=== PATIENT | female | born 1995 | race Caucasian/White ===

== ENCOUNTER 2016-10-29 07:32 | Day surgery (SDC) | payer OTHER ==
[2016-10-26 14:59] LABS: ALKALINE PHOSPHATASE 89 U/L (32-104); DIRECT BILIRUBIN < 0.20 mg/dL (0.00-0.20); GOT 15 U/L (10-30); GPT 21 U/L (10-36); TOTAL BILIRUBIN 0.26 mg/dL (0.20-1.00); TOTAL PROTEIN 7.2 g/dL (6.3-8.3)
[2016-10-29] MEDS ORDERED: LR 1,000 ML ONE ×3 (07:49→16:31)
[2016-10-29] MEDS ORDERED: REGLAN ONE (07:49)
[2016-10-29] MEDS ORDERED: PEPCID ONE (07:49)
[2016-10-29] MEDS ORDERED: KEFZOL 1 GM/D5W 50 ML ONE (07:49)
[2016-10-29] MEDS ORDERED: TRANSDERM-SCOP ONE (07:49)
[2016-10-29] MEDS ORDERED: VALIUM ONE (07:50)
[2016-10-29] MEDS ORDERED: SODIUM CHLORIDE 0.9% ONE ×2 (08:30→09:11)
[2016-10-29] MEDS ORDERED: MARCAINE 0.25% PF/EPI 1:200,000 ONE (08:30)
[2016-10-29] MEDS ORDERED: DEMEROL ONE (10:11)
--- NOTE | 2016-10-29 10:15 | Diag Imaging Result Document ---
PROCEDURE NAME: OPERATIVE CHOLANGIOGRAM - 10/29/2016 INTRAOPERATIVE CHOLANGIOGRAM, SINGLE VIEW: FINDINGS: Film taken during a procedure performed by Dr. Escobedo. Dose is 3.93 mGy. Fluoroscopy time was 8 seconds. Contrast fills the common bile duct and has emptied into the duodenum. No stone or stricture. IMPRESSION: Normal intraoperative cholangiogram.
[2016-10-29] MEDS: DILAUDID ONE ×2 (10:23→10:43)
[2016-10-29] MEDS ORDERED: BUPRENEX IV PRN (11:09)
[2016-10-29] MEDS ORDERED: NORCO-10 PO PRN (11:09)
[2016-10-29] MEDS ORDERED: ZOFRAN IV PRN (11:09)
--- NOTE | 2016-10-29 13:26 | OPERATIVE NOTE ---
PROCEDURE DATE: 10/29/2016 PREOPERATIVE DIAGNOSIS: Chronic calculous cholecystitis. POSTOPERATIVE DIAGNOSIS: Chronic calculous cholecystitis. PROCEDURE PERFORMED: Laparoscopic cholecystectomy with operative cholangiogram. SURGEON: Rosalino Escobedo MD ANESTHESIA: General. ESTIMATED BLOOD LOSS: 10 mL. COMPLICATIONS: None apparent. SPECIMENS: Gallbladder. FINDINGS: The gallbladder was moderately distended. The cholangiogram revealed normal proximal hepatic radicals and distal common bile duct. There were no filling defects or stenoses. There was flow of contrast seen flowing into the duodenum. TECHNIQUE: She was brought to the operating room and placed supine on the table. General anesthesia was induced. She was prepped and draped and draped in usual sterile fashion. Marcaine 0.25% with epinephrine was used to anesthetize the skin incisions. An 11 mm incision was made above the umbilicus. The fascia was exposed and incised sharply. Entry into the peritoneal cavity was obtained under direct vision with the Optiview device. A pneumoperitoneum was established. The camera was inserted. There was no evidence of injury to underlying structures. She was placed in reverse Trendelenburg and left rotation. Three 5 mm incision and ports were placed along the epigastric and right upper quadrant below the costal margin per usual routine. The dome of the gallbladder was grasped by the pathology assistant and lifted up superiorly. Omental and duodenal filmy adhesions were taken down off the gallbladder bluntly with forceps. The triangle of Calot was then dissected out with [place] forceps and using hook cautery to incise fibroareolar tissue. The critical view was obtained. The gallbladder-liver junction was seen. There were only 2 structures entering the gallbladder, the cystic duct and cystic artery. A clip was placed on the distal cystic artery. A ductotomy was made proximal to this with scissors. A 14-gauge Angiocath was passed through the right upper quadrant. The Taut cholangiogram catheter was passed through this into the cystic duct and held in place with a clip. The cholangiogram was performed with the findings as noted above. The clip, catheter, and Angiocath were then removed. Two clips were placed on the proximal cystic duct. It was divided distal to these 2 with scissors. The cystic artery was clipped proximally and distally and incised between scissors. The gallbladder was taken off the liver bed using hook cautery, obtaining hemostasis along the way. After it was removed, I inspected the dissection area of the liver bed. There were no signs of any bleeding or bile leakage. I then placed the gallbladder into an EndoCatch bag and irrigated out the right upper quadrant and suctioned out the old blood and irrigant. I then brought the gallbladder and bag out through the umbilical port site and closed the umbilical fascia with interrupted 0 Vicryl using the Daron-Olivier device. This was done under direct vision. The abdomen was desufflated. The remaining ports were removed. The skin was closed with running 4-0 subcuticular Monocryl and Steri-Strips. There were no apparent complications. She was awakened in stable condition and transferred to the recovery room.
[2016-10-29 14:13] VITALS: BP 148/63
[2016-10-29] MEDS ORDERED: DIPRIVAN 1% ONE (15:31)
[2016-10-29] MEDS ORDERED: FENTANYL ONE (15:31)
[2016-10-29] MEDS ORDERED: VERSED ONE ×2 (15:32→15:33)
[2016-10-29] MEDS ORDERED: ZOFRAN ONE (16:30)
[2016-10-29] MEDS ORDERED: NEOSTIGMINE ONE (16:30)
[2016-10-29] MEDS ORDERED: QUELICIN (DOSE) ONE (16:31)
[2016-10-29] MEDS ORDERED: ROBINUL ONE (16:31)
[2016-10-29] MEDS ORDERED: ZEMURON ONE (16:31)
[2016-10-29] MEDS ORDERED: XYLOCAINE-MPF 2% ONE (16:31)
== END 2016-10-29 13:45 | disposition home or self-care (01) ==
LOC: OPS 07:32
PROVIDERS: ATTEND Surgery
DX: K80.10 Calculus of gallbladder with chronic cholecystitis without obstruction (principal); R10.11 Right upper quadrant pain; E66.01 Morbid (severe) obesity due to excess calories; Z68.37 Body mass index [BMI] 37.0-37.9, adult; Z87.891 Personal history of nicotine dependence; Z80.9 Family history of malignant neoplasm, unspecified; Z82.49 Family history of ischemic heart disease and other diseases of the circulatory system
CPT/HCPCS: 74300; 80076; 84703; 88304; C1751; J0330; J0690; J1170; J2175; J2250; J2405; J3010; J7120; Q9966; J2710